=== PATIENT | male | born 1945 | race Caucasian/White ===

== ENCOUNTER 2017-06-16 20:49 | Emergency (ER) | payer OTHER ==
[~2017-06-16] VITALS: Ht 167.6 cm; Wt 63.5 kg
[~2017-06-16 20:49] MED LIST: ASPI-859 PO; ATOR20TA64 PO; COR25 PO; DIGO250T4 PO; FENO160 PO; FERR-69 PO; NITSL SL; OMEG500C3 PO; OMEP-130 PO; PHEN100C4 PO; WARF1TAB46 PO
[2017-06-16 20:50] VITALS: BP_SYST 158
[2017-06-16] MEDS ORDERED: NACL 0.9% 1,000 ML IV ONE (21:00)
[2017-06-16] MEDS ORDERED: KETOROLAC TROMETHAMINE 30 MG VIAL IVP ONE (21:00)
[2017-06-16 21:21] LABS: BASOPHILS # (AUTO) 0.1 K/uL (0.0-0.2); BASOPHILS % (AUTO) 0.8 % (0.0-2.0); EOSINOPHILS # (AUTO) 0.1 K/uL (0.0-0.4); EOSINOPHILS % (AUTO) 1.5 % (0.0-4.0); HEMATOCRIT 36.5 % (36-54); HEMOGLOBIN 12.6 g/dL (14.0-18.0); LYMPHOCYTES # (AUTO) 1.9 K/uL (1.0-5.5); LYMPHOCYTES % (AUTO) 21.8 % (20.5-51.5); MEAN CORPUSCULAR HEMOGLOBIN 33 pg (27-31); MEAN CORPUSCULAR HGB CONC 35 % (32-36); MEAN CORPUSCULAR VOLUME 95 fL (79.0-98.0); MONOCYTES # (AUTO) 0.8 K/uL (0.0-1.0); NEUTROPHILS # (AUTO) 5.8 K/uL (1.8-7.7); NEUTROPHILS % (AUTO) 66.9 % (40.0-70.0); PLATELET COUNT (AUTO) 227 K/uL (130-430); RED BLOOD CELL COUNT(AUTO) 3.86 MIL/uL (4.2-6.2); RED CELL DISTRIBUTION WIDTH 11.8 % (9.0-15.0); WHITE BLOOD COUNT (AUTO) 8.7 K/uL (4.8-10.8)
[2017-06-16] MEDS ORDERED: OMEG300C3 PO (21:23)
[2017-06-16] MEDS ORDERED: WARF1TAB46 PO (21:23)
[2017-06-16] MEDS ORDERED: FERR-31 PO (21:23)
[2017-06-16] MEDS ORDERED: INSU100I20 SQ (21:23)
[2017-06-16] MEDS ORDERED: BETA1TAB20 PO (21:23)
[2017-06-16] MEDS ORDERED: LISI10TA PO (21:23)
[2017-06-16] MEDS ORDERED: Lanoxin PO (21:23)
[2017-06-16] MEDS ORDERED: CA C1TAB92 PO (21:23)
[2017-06-16] MEDS ORDERED: AMLO2.5T2 PO (21:23)
[2017-06-16 21:24] LABS: ANION GAP 11 (5-15); CALCIUM 9.8 mg/dL (8.4-11.0); CHLORIDE 101 mmol/L (98-107); CREATININE 1.78 mg/dL (0.55-1.30); GLUCOSE 167 mg/dL (70-99); POTASSIUM 4.7 mmol/L (3.5-5.1); SODIUM SERUM 136 mmol/L (136-145); UREA NITROGEN, BLOOD 31 mg/dL (8-21)
[2017-06-16 21:29] LABS: ALANINE AMINOTRANSFERASE 24 U/L (12-78); ALBUMIN 3.8 g/dL (3.4-4.8); ASPARTATE AMINOTRANSFERASE 20 U/L (10-37); INR 1.4 (0.80-1.20); PROTHROMBIN TIME 15.3 SECS (9.5-12.5); TOTAL BILIRUBIN 0.3 mg/dL (0.0-1.0); TOTAL PROTEIN, SERUM 7.9 g/dL (6.4-8.3)
[2017-06-16 22:33] VITALS: BP_SYST 136
== END 2017-06-16 22:33 | disposition home or self-care (01) ==
LOC: SED 20:49
DX: K59.00 Constipation, unspecified (principal); K62.89 Other specified diseases of anus and rectum; I10 Essential (primary) hypertension; Z86.73 Personal history of transient ischemic attack (TIA), and cerebral infarction without residual deficits; Z79.899 Other long term (current) drug therapy
CPT/HCPCS: 36415; 80053; 85025; 85610; 85730; 96361; 96374; 99284; J1885; J7030

== ENCOUNTER 2018-02-22 10:29 | Inpatient (IN) | payer OTHER ==
[~2018-02-22] VITALS: Ht 167.6 cm; Wt 72.6 kg
[~2018-02-22 10:29] MED LIST changes: +AMLO2.5T2 PO; +BETA1TAB20 PO; +CA C1TAB92 PO; -DIGO250T4 PO; +FERR-31 PO; -FERR-69 PO; +INSU100I20 SQ; +LISI10TA PO; +Lanoxin PO; -WARF1TAB46 PO
[2018-02-22 10:34] VITALS: BP_SYST 120
[2018-02-22] MEDS ORDERED: NACL 0.9% 1,000 ML IV ONE (10:45)
[2018-02-22 11:11] LABS: BASOPHILS % (AUTO) 0.3 % (0.0-2.0); EOSINOPHILS # (AUTO) 0.2 K/uL (0.0-0.4); EOSINOPHILS % (AUTO) 2.8 % (0.0-4.0); HEMATOCRIT 35.5 % (36-54); HEMOGLOBIN 12.4 g/dL (14.0-18.0); LYMPHOCYTES # (AUTO) 1.6 K/uL (1.0-5.5); LYMPHOCYTES % (AUTO) 26.6 % (20.5-51.5); MEAN CORPUSCULAR HEMOGLOBIN 32 pg (27-31); MEAN CORPUSCULAR HGB CONC 35 % (32-36); MEAN CORPUSCULAR VOLUME 93 fL (79.0-98.0); MONOCYTES # (AUTO) 0.6 K/uL (0.0-1.0); MONOCYTES % (AUTO) 10.4 % (1.7-9.3); NEUTROPHILS # (AUTO) 3.5 K/uL (1.8-7.7); NEUTROPHILS % (AUTO) 59.9 % (40.0-70.0); PLATELET COUNT (AUTO) 245 K/uL (130-430); RED BLOOD CELL COUNT(AUTO) 3.82 MIL/uL (4.2-6.2); RED CELL DISTRIBUTION WIDTH 13.1 % (9.0-15.0); WHITE BLOOD COUNT (AUTO) 5.9 K/uL (4.8-10.8)
[2018-02-22 11:27] LABS: ANION GAP 10 (5-15); CALCIUM 9.6 mg/dL (8.4-11.0); CHLORIDE 101 mmol/L (98-107); GLUCOSE 190 mg/dL (70-99); POTASSIUM 4.2 mmol/L (3.5-5.1); SODIUM SERUM 136 mmol/L (136-145); UREA NITROGEN, BLOOD 22 mg/dL (8-21)
[2018-02-22 11:31] LABS: ALANINE AMINOTRANSFERASE 29 U/L (12-78); ALBUMIN 3.6 g/dL (3.4-4.8); AMYLASE 78 U/L (0-100); ASPARTATE AMINOTRANSFERASE 20 U/L (10-37); LIPASE 195 U/L (73-393); TOTAL BILIRUBIN 0.3 mg/dL (0.0-1.0)
[2018-02-22 11:36] LABS: BILIRUBIN,URINE NEGATIVE (NEGATIVE); BLOOD, URINE NEGATIVE (NEGATIVE); CLARITY/URINE CLEAR (CLEAR); COLOR,URINE YELLOW (YELLOW); GLUCOSE,URINE NEGATIVE (NEGATIVE); KETONES,URINE NEGATIVE (NEGATIVE); LEUKOCYTE ESTERASE ,URINE NEGATIVE (NEGATIVE); NITRITE, URINE NEGATIVE (NEGATIVE); PROTEIN URINE TRACE (NEGATIVE); UROBILINOGEN,URINE 0.2 (0.2-1.0)
[2018-02-22 12:02] LABS: INR 8.2 (0.80-1.20); PROTHROMBIN TIME 95.5 SECS (9.5-12.5)
[2018-02-22] MEDS ORDERED: LIP10 PO (12:13)
[2018-02-22] MEDS ORDERED: COUMADIN PO (12:13)
[2018-02-22] MEDS ORDERED: PROTAMINE SULFATE 50MG/5 ML VIAL IV ONE (12:15)
[2018-02-22] MEDS ORDERED: PHYTONADIONE 10 MG/ML AMP IV ONE (12:15)
[2018-02-22] MEDS ORDERED: PHYTONADIONE 10 MG in NS 50 ML SUBCUT ONE (12:45)
[2018-02-22 14:00] VITALS: BP_SYST 144
[2018-02-22 16:00] VITALS: BP_SYST 135; BP_SYST 144
[2018-02-22 19:45] VITALS: BP_SYST 155
[2018-02-23 00:51] VITALS: BP_SYST 135
[2018-02-23 06:30] LABS: ALANINE AMINOTRANSFERASE 27 U/L (12-78); ALBUMIN 3.4 g/dL (3.4-4.8); ANION GAP 6 (5-15); ASPARTATE AMINOTRANSFERASE 24 U/L (10-37); CALCIUM 9.5 mg/dL (8.4-11.0); CHLORIDE 102 mmol/L (98-107); CREATININE 1.05 mg/dL (0.55-1.30); GLUCOSE 140 mg/dL (70-99); POTASSIUM 4.1 mmol/L (3.5-5.1); SODIUM SERUM 134 mmol/L (136-145); TOTAL BILIRUBIN 0.6 mg/dL (0.0-1.0); UREA NITROGEN, BLOOD 21 mg/dL (8-21)
[2018-02-23 06:42] LABS: INR 1.5 (0.80-1.20); PROTHROMBIN TIME 15.7 SECS (9.5-12.5)
[2018-02-23 07:25] VITALS: BP_SYST 137
[2018-02-23 10:55] VITALS: BP_SYST 137
[2018-02-23 11:50] VITALS: BP_SYST 133
== END 2018-02-23 11:25 | disposition home or self-care (01) | DRG 918 ==
LOC: SED 10:29 → SMU 13:06
PROVIDERS: ADMIT Internal Medicine; ATTEND Internal Medicine
DX: T45.511A Poisoning by anticoagulants, accidental (unintentional), initial encounter (principal); I42.9 Cardiomyopathy, unspecified; I69.351 Hemiplegia and hemiparesis following cerebral infarction affecting right dominant side; R79.1 Abnormal coagulation profile; E11.9 Type 2 diabetes mellitus without complications; E78.5 Hyperlipidemia, unspecified; I10 Essential (primary) hypertension; I25.10 Atherosclerotic heart disease of native coronary artery without angina pectoris; Z79.01 Long term (current) use of anticoagulants; Z95.5 Presence of coronary angioplasty implant and graft; Z95.810 Presence of automatic (implantable) cardiac defibrillator; Y92.89 Other specified places as the place of occurrence of the external cause
CPT/HCPCS: 36415; 71045; 80053; 80185-TC; 81003; 82150-TC; 82550-TC; 82962; 83690-TC; 83880; 84484; 85025; 85379; 85610-TC; 85730-TC; 93005; 96361; 96365; 96375; 99285; J2720; J3430; J7030